=== PATIENT | male | born 1950 | race Caucasian/White ===

== ENCOUNTER → 2017-02-03 | Outpatient (CLI) | payer MEDICARE, BC ==
[2014-03-07 17:06] VITALS: BP 137/72
[~2017-02-03] MED LIST: AMOX1TAB11 PO
--- NOTE | 2017-02-03 10:40 | RAD ---
Indication follow-up lung nodule. Axial images through the chest were obtained. Comparison is made to an examination 04/27/2016. Imaging through the upper abdomen is unremarkable. There is coronary artery calcification. Mild mediastinal adenopathy is noted appearing similar. There is no significant hilar adenopathy seen. No acute finding is seen in the chest. Pulmonary nodules along the minor fissure in the right lung appears similar. Additional small nodules along the minor fissure also appear unchanged. Acute finding or new finding in the chest is not seen. IMPRESSION: Stable small pulmonary nodules in the right lung. No acute finding seen in the chest PQRS Compliance Statement: One or more of the following individualized dose reduction techniques were utilized for this examination: 1. Automated exposure control 2. Adjustment of the mA and/or kV according to patient size 3. Use of iterative reconstruction technique
== END | disposition home or self-care (01) ==
LOC: CT 09:50
PROVIDERS: ATTEND Internal Medicine Critical Care Medicine
DX: R91.8 Other nonspecific abnormal finding of lung field (principal); I25.10 Atherosclerotic heart disease of native coronary artery without angina pectoris; R59.9 Enlarged lymph nodes, unspecified
CPT/HCPCS: 71250

== ENCOUNTER 2017-03-25 16:08 | Inpatient (IN) | payer OTHER, MEDICARE, BC ==
[~2017-03-25] VITALS: Ht 170.2 cm; Wt 104.3 kg
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
[2017-03-25] MEDS ORDERED: IOHEXOL 300 MG/ML 75 ML VIAL. IV ONE (16:50)
--- NOTE | 2017-03-25 17:01 | EKG ---
[address] [address] Test Date: 2017-03-25 Test Time: 16:53:33 Pat Name: LAYLA HUMPHREY Department: Room: Gender: M Shot Packer: : [id number] Requested By: CHASE RAY Order Number: [id number] Reading MD: Michael Lundy MD Measurements Intervals [place] Rate: 108 P: 26 [place]: 150 QRS: -5 QRSD: 76 T: 35 QT: 322 QTc: 435 Interpretive Statements SINUS TACHYCARDIA NON-SPECIFIC ST/T CHANGES Electronically Signed On 03-27-2017 13:49:20 CDT by Michael Lundy MD
[2017-03-25 17:04] LABS: BASO # 0.1 x10^3/uL (0.0-0.2); BASO % 1 % (0-3); EOS # 0.5 x10^3/uL (0.0-0.7); EOS % 5 % (0-3); HEMATOCRIT 44.2 % (39.0-53.0); HEMOGLOBIN 15.3 g/dL (13.0-17.5); LYMPH # 1.1 x10^3/uL (1.0-4.8); LYMPH % 11 % (24-48); MEAN CORPUSCULAR HEMOGLOBIN 32 pg (25-35); MEAN CORPUSCULAR HGB CONC 35 g/dL (31-37); MEAN CORPUSCULAR VOLUME 92 fL (79-100); MONO # 0.8 x10^3/uL (0.0-1.1); MONO % 8 % (0-9); NEUT # 6.9 x10^3uL (1.8-7.7); NEUT % 74 % (31-73); PLATELET COUNT 223 x10^3/uL (140-400); RED CELL DISTRIBUTION WIDTH 13.4 % (11.5-14.5); WHITE BLOOD COUNT 9.4 x10^3/uL (4.0-11.0)
[2017-03-25 17:15] LABS: ALBUMIN 3.4 g/dL (3.4-5.0); ALBUMIN/GLOBULIN RATIO 0.9 (1.0-1.7); CALCIUM 8.1 mg/dL (8.5-10.1); CREATININE 1.1 mg/dL (0.7-1.3); POTASSIUM 3.9 mmol/L (3.5-5.1); TOTAL BILIRUBIN 0.4 mg/dL (0.2-1.0); TOTAL PROTEIN 7.2 g/dL (6.4-8.2)
--- NOTE | 2017-03-25 18:01 | RAD ---
PQRS Compliance Statement: One or more of the following individualized dose reduction techniques were utilized for this examination: 1. Automated exposure control 2. Adjustment of the mA and/or kV according to patient size 3. Use of iterative reconstruction technique CT CHEST WITH CONTRAST, PULMONARY ANGIOGRAM History: TACHYCARDIA, SYNCOPE Comparison: CT chest without contrast the tumor 2016. Technique: Helical CT of the chest was performed after the administration of 75 cc Omnipaque 300 intravenous contrast according to PE protocol. Axial and coronal reconstructions were obtained. 3-D MIP images were constructed to better evaluate the pulmonary arteries. Findings: Pulmonary arteries are adequately opacified. There is no evidence of pulmonary embolism. No thoracic aortic dissection. Right paratracheal adenopathy is stable. Mild bilateral hilar adenopathy, similar to prior study. Three-vessel coronary artery disease. Cardiac size normal, no pericardial effusion. There is bilateral lower lobe peribronchial thickening. There are 2 subcentimeter noncalcified nodules in the in the right middle lobe that are along the major fissure as seen on sagittal image 89. The nodules are stable. Larger of the 2 nodules measures 10 x 7 mm. Mild bilateral lower lobe atelectasis or scarring. No pleural effusion. Visualized upper abdomen unremarkable. No compression fracture in the thoracic spine. IMPRESSION: 1. There is no CT evidence of pulmonary embolus. 2. Bilateral lower lobe bronchitis. 3. Stable right paratracheal and bilateral hilar adenopathy. 4. There are 2 noncalcified nodules in the right middle lobe that are stable. Suggest CT chest follow-up in 6 months. Electronically signed by: Mir Renae MD (03/25/2017 5:57 PM) [facility]
[2017-03-25 19:50] VITALS: BP 123/74
[2017-03-25 19:51] VITALS: BP 123/74
[2017-03-25] MEDS ORDERED: HYDR25TA PO (20:01)
[2017-03-25] MEDS ORDERED: AMIT50TA PO (20:01)
[2017-03-25] MEDS ORDERED: ROPI0.5T PO (20:01)
[2017-03-25] MEDS ORDERED: TAMS0.4C2 PO (20:01)
[2017-03-25] MEDS ORDERED: ACET325T9 PO (20:44)
[2017-03-25] MEDS ORDERED: hydrOXYzine HCL 25 MG TABLET PO PRN (20:45)
[2017-03-25] MEDS ORDERED: ACETAMINOPHEN 325 MG TABLET PO PRN (20:45)
[2017-03-25] MEDS ORDERED: AMITRIPTYLINE HCL 50 MG TABLET PO SCH (21:00)
[2017-03-25] MEDS ORDERED: rOPINIRole 0.5 MG TABLET. PO SCH (21:00)
[2017-03-25 22:39] VITALS: BP 130/79
[2017-03-26 05:04] LABS: BASO % 0 % (0-3); EOS # 0.4 x10^3/uL (0.0-0.7); EOS % 5 % (0-3); HEMATOCRIT 40.7 % (39.0-53.0); HEMOGLOBIN 14.3 g/dL (13.0-17.5); LYMPH # 1.6 x10^3/uL (1.0-4.8); LYMPH % 21 % (24-48); MEAN CORPUSCULAR HEMOGLOBIN 32 pg (25-35); MEAN CORPUSCULAR HGB CONC 35 g/dL (31-37); MEAN CORPUSCULAR VOLUME 92 fL (79-100); MONO # 0.9 x10^3/uL (0.0-1.1); MONO % 11 % (0-9); NEUT # 4.8 x10^3uL (1.8-7.7); NEUT % 62 % (31-73); PLATELET COUNT 213 x10^3/uL (140-400); RED BLOOD COUNT 4.43 x10^6/uL (4.30-5.70); RED CELL DISTRIBUTION WIDTH 13.4 % (11.5-14.5); WHITE BLOOD COUNT 7.6 x10^3/uL (4.0-11.0)
[2017-03-26 05:21] LABS: ALBUMIN/GLOBULIN RATIO 0.9 (1.0-1.7); CALCIUM 7.8 mg/dL (8.5-10.1); CREATININE 1.1 mg/dL (0.7-1.3); MAGNESIUM 1.7 mg/dL (1.8-2.4); POTASSIUM 3.7 mmol/L (3.5-5.1); TOTAL BILIRUBIN 0.5 mg/dL (0.2-1.0); TOTAL PROTEIN 6.5 g/dL (6.4-8.2)
[2017-03-26 05:45] VITALS: BP 120/67
[2017-03-26] MEDS ORDERED: TAMSULOSIN 0.4 MG CAP.ER.24H. PO SCH (09:00)
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
[2017-03-26 11:02] VITALS: BP 127/66
[2017-03-26] MEDS ORDERED: guaiFENesin DM 600/30MG 1 TAB TAB.ER.12H PO SCH (14:00)
[2017-03-26] MEDS ORDERED: carBAMazepine 100 MG TAB.CHEW PO SCH (14:00)
[2017-03-26 15:32] VITALS: BP 172/69
[2017-03-26] MEDS ORDERED: CARB100T4 PO (16:03)
[2017-03-26] MEDS ORDERED: BENZ100C PO (16:03)
[2017-03-26] MEDS ORDERED: GUAI-108 PO (16:03)
[2017-03-26] MEDS ORDERED: guaiFENesin DM 200MG/20MG 10 ML SYRUP PO ONE (16:15)
[2017-03-26] MEDS ORDERED: BENZONATATE 100 MG CAPSULE. PO ONE (16:20)
--- NOTE | 2017-03-26 18:36 | RAD ---
APPROVED REPORT Patient Location: IN-PATIENT Laterality:Bilateral Indications Syncope recurrent syncope x's -3years intermittent. Comes on when patient coughs Risk Factors Lockhart scale images of the bilateral common carotid, external and internal carotid arteries reveals min imal plaque. Spectral waveforms and color dopplers are witin normal limits. Velocities in the CCA, ICA and ECA are consistent with 0-50% stenosis by ultrasound criteria. No high grade disease is noted. Antegrade vertebral velocities noted. Critical Notification Critical Value: No <Conclusion> No high grade carotid arterial disease bilaterally.
--- NOTE | 2017-03-26 18:40 | CARD ---
APPROVED REPORT EXAM: Two-dimensional and M-mode echocardiogram with Doppler and color Doppler. Other Information Quality : PoorHR: 97bpm Rhythm : NSR INDICATION Syncope 2D DIMENSIONS Left Atrium(2D)3.0 (1.6-4.0cm)IVSd0.9 (0.7-1.1cm) Aortic Root(2D)2.0 (2.0-3.7cm)LVDd4.6 (3.9-5.9cm) LVOT Diameter2.2 (1.8-2.4cm)PWd0.8 (0.7-1.1cm) LVDs3.1 (2.5-4.0cm)FS (%) 32.8 % SV61.1 mlLVEF(%)61.2 (>50%) Aortic Valve AoV Peak Morgan.156.9cm/sAoV VTI26.3cm AO Peak GR.9.8mmHgLVOT Peak Morgan.145.9cm/s LVOT VTI 25.80cmAO Mean GR.6mmHg BRYSON (VMAX)3.36xy5ONG (VTI)3.67cm2 Mitral Valve MV E Kwvgfaoa16.5cm/sMV E Peak Gr.3mmHg MV DECEL [id number] A Bgqesfdw01.4cm/s MV E Mean Gr.2mmHgE/A Ratio1.0 MV A [id number] Pulmonary Valve PV Peak Ttffhvuw406.7cm/sPV Peak Grad.5mmHg Tricuspid Valve TR P. [id number]/sTR Peak Gr.10mmHg LEFT VENTRICLE The left ventricle is normal size. There is normal left ventricular wall thickness. Grossly normal LV function. EF 55% Wall motion not well visualized. RIGHT VENTRICLE The right ventricle is normal size. There is normal right ventricular wall thickness. The right ventr icular systolic function is normal. ATRIA Not well visualized. AORTIC VALVE Doppler and Color Flow revealed no significant aortic regurgitation. There is no significant aortic v alvular stenosis. MITRAL VALVE There is no evidence of mitral valve prolapse. There is no mitral valve stenosis. Doppler and Color-f low revealed mild mitral regurgitation. TRICUSPID VALVE Doppler and Color Flow revealed trace tricuspid regurgitation. There is no tricuspid valve prolapse o r vegetation. There is no tricuspid valve stenosis. PULMONIC VALVE Doppler and Color Flow revealed no pulmonic valvular regurgitation. There is no pulmonic valvular tony nosis. GREAT VESSELS The aortic root is normal in size. Pulmonary Vein is not well visualized. The IVC is normal in size a nd collapses >50% with inspiration. PERICARDIAL EFFUSION There is no pleural effusion. There is no evidence of significant pericardial effusion. Critical Notification Critical Value: No <Conclusion> Grossly normal LV function. EF 55% Wall motion not well visualized. Technically very difficult study. Limited images.
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
== END 2017-03-26 19:00 | disposition home or self-care (01) | DRG 312 ==
LOC: ER 16:08 → 1 SOUTH 17:57
PROVIDERS: ADMIT Family Medicine; ATTEND Family Medicine
DX: R55 Syncope and collapse (principal); B02.29 Other postherpetic nervous system involvement; E66.9 Obesity, unspecified; E78.5 Hyperlipidemia, unspecified; F32.9 Major depressive disorder, single episode, unspecified; K21.9 Gastro-esophageal reflux disease without esophagitis; K58.9 Irritable bowel syndrome, unspecified; N40.0 Benign prostatic hyperplasia without lower urinary tract symptoms; G50.0 Trigeminal neuralgia; G25.81 Restless legs syndrome; G47.30 Sleep apnea, unspecified; H54.7 Unspecified visual loss; J40 Bronchitis, not specified as acute or chronic; Z82.3 Family history of stroke; Z82.5 Family history of asthma and other chronic lower respiratory diseases; Z83.3 Family history of diabetes mellitus; Z68.36 Body mass index [BMI] 36.0-36.9, adult
CPT/HCPCS: 36415; 71275; 80053; 83735; 84484; 85025; 93005; 93306; 93880; Q9967; 99285-25

== ENCOUNTER 2019-02-23 20:31 | Emergency (ER) | payer MEDICARE, BC ==
[~2019-02-23] VITALS: Ht 170.2 cm; Wt 104.3 kg
[~2019-02-23 20:31] MED LIST changes: +ACET325T9 PO; +AMIT50TA PO; +BENZ100C PO; +CARB100T4 PO; +GUAI-108 PO; +HYDR25TA PO; +ROPI0.5T PO; +TAMS0.4C2 PO
[2019-02-23] MEDS ORDERED: CIPR2.5D LEFT EAR (20:57)
[2019-02-23 21:00] VITALS: BP 184/100
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
== END 2019-02-23 21:00 | disposition home or self-care (01) ==
LOC: ER 20:31
DX: H72.92 Unspecified perforation of tympanic membrane, left ear (principal); K58.9 Irritable bowel syndrome, unspecified; Z88.5 Allergy status to narcotic agent
CPT/HCPCS: 99283